=== PATIENT | female | born 1960 | race Caucasian/White ===

== ENCOUNTER 2022-12-15 15:48 | Outpatient (CLI) | payer BC ==
[2022-12-15 16:04] LABS: TOTAL HEMOGLOBIN 17.6 G/dl (12.0-16.0)
== END 2022-12-15 23:59 | disposition home or self-care (01) ==
LOC: RT 15:48
PROVIDERS: ATTEND Internal Medicine Cardiovascular Disease
DX: R06.02 Shortness of breath (principal)
CPT/HCPCS: 85018; 94010; 94727; 94729